=== PATIENT | female | born 1945 | race Two or more races ===

== ENCOUNTER 2023-06-13 06:00 | Day surgery (SDC) | payer OTHER ==
[~2023-06-13 06:00] MED LIST: FOLIC PO; METHOT PO
== END 2023-06-13 16:10 | disposition home or self-care (01) ==
LOC: CIR.AMB 06:00
PROVIDERS: ATTEND Orthopaedic Surgery Hand Surgery
DX: M25.821 Other specified joint disorders, right elbow (principal); M06.321 Rheumatoid nodule, right elbow; R22.31 Localized swelling, mass and lump, right upper limb; L92.8 Other granulomatous disorders of the skin and subcutaneous tissue; I10 Essential (primary) hypertension; Z20.822 Contact with and (suspected) exposure to COVID-19

== ENCOUNTER 2023-10-03 05:30 | Day surgery (SDC) | payer OTHER ==
[2023-10-03] MEDS ORDERED: CEFAZOLIN SODIUM 1,000 MG VIAL ONE (07:28)
[2023-10-03] MEDS ORDERED: BUPIVACAINE HCL/PF 0.5% 30ML ML ONE (07:34)
[2023-10-03] MEDS ORDERED: CEFAZOLIN SODIUM 1,000 MG VIAL IV ONE (09:15)
[2023-10-03] MEDS ORDERED: BUPIVACAINE HCL 30 ML VIAL IJ ONE (09:15)
== END 2023-10-03 10:45 | disposition home or self-care (01) ==
LOC: CIR.AMB 05:30
PROVIDERS: ATTEND Orthopaedic Surgery Hand Surgery
DX: D21.12 Benign neoplasm of connective and other soft tissue of left upper limb, including shoulder (principal); S69.82XA Other specified injuries of left wrist, hand and finger(s), initial encounter; L30.8 Other specified dermatitis; R22.32 Localized swelling, mass and lump, left upper limb; Z91.013 Allergy to seafood; Z20.822 Contact with and (suspected) exposure to COVID-19